=== PATIENT | male | born 1975 | race Asian ===

== ENCOUNTER 2024-03-10 08:19 | Inpatient (IN) | payer OTHER ==
[2024-03-10] MEDS ORDERED: LIDOCAINE VISCOUS 2% 10ML ORAL SOLN ONE (08:34)
[2024-03-10] MEDS ORDERED: MAGNES/ALUMIN/SIMET 30ML UCUP ONE (08:34)
[2024-03-10] MEDS ORDERED: DICYCLOMINE HCL 10 MG CAP ONE (08:34)
[2024-03-10 08:49] LABS: Absolute Basophils 0.1 K/uL (0-0.5); Absolute Eosinophils 0.4 K/uL (0-0.5); Absolute Lymphocytes (CBC) 3.8 K/uL (0.7-4.9); Absolute Neutrophil 6.6 K/uL (1.8-8.0); Basophils % 0.6 % (0-1.3); Eosinophils % 3.4 % (0-4.4); Hematocrit 38.9 % (39.6-49.0); Hemoglobin 13.1 g/dL (13.6-17.9); MCH 27.1 pg (27.0-35.0); MCHC 33.8 g/dL (32.0-36.0); MCV 80.1 fL (80-100); MPV 9.2 fL (7.6-11.3); Monocytes % 8.6 % (3.3-12.3); Neutrophils % 55.4 % (41.7-73.7); Nucleated Red Blood Cells % 0.1 % (0-0); Platelets 288 thou/uL (152-406); RBC Red Blood Cell Count 4.86 M/uL (4.33-5.43); Red Cell Distribution Width 14.6 % (12.1-15.2)
[2024-03-10 09:09] LABS: Anion Gap 9.7 mEq/L (5.0-15.0); Bilirubin Total 0.4 mg/dL (0.2-1.0); Potassium 3.7 mEq/L (3.5-5.1); Troponin High Sensitivity 10.2 pg/mL (<58.9)
[2024-03-10] MEDS ORDERED: ONDANSETRON 4 MG/2 ML VIAL ONE (09:23)
[2024-03-10] MEDS ORDERED: MORPHINE 4 MG/ML SYR ONE (09:24)
--- NOTE | 2024-03-10 10:01 | RAD REPORT ---
EXAM DESCRIPTION: CTAbdomen Pelvis W Contrast - 03/10/2024 9:40 am CLINICAL HISTORY: Abdominal pain. ABD PAIN COMPARISON: <Comparisons> TECHNIQUE: Biphasic CT imaging of the abdomen and pelvis was performed with 100 ml non-ionic IV cont rast. All CT scans are performed using dose optimization technique as appropriate and may include automated exposure control or mA/KV adjustment according to patient size. FINDINGS: The lung bases are clear. The liver demonstrates mild fatty infiltration. Cholelithiasis. Spleen, pancreas, adrenal glands and kidneys are within normal limits. Postsurgical changes are present inferior right kidney. Benign bila teral renal cysts. No bowel obstruction, free air, free fluid or abscess. Moderate stool is present throughout the colon . The appendix is normal. Small fat containing umbilical hernia. No evidence of significant lymphaden opathy. No suspicious bony findings. IMPRESSION: Cholelithiasis with mild gallbladder distention seen. Mild fatty liver.
[2024-03-10] MEDS ORDERED: KETOROLAC 30 MG/ML INJ ONE (10:15)
--- NOTE | 2024-03-10 10:44 | RAD REPORT ---
EXAM DESCRIPTION: US - Abdomen Exam Limited - 03/10/2024 10:29 am CLINICAL HISTORY: ruq pain COMPARISON: No comparisons FINDINGS: The gallbladder demonstrates numerous small gallstones. No pericholecystic fluid or gallbl adder wall thickening. The common bile duct is mildly prominent measuring 6-7 mm.. The liver demonstrates no findings of intrahepatic biliary dilatation. IMPRESSION: Cholelithiasis. Mildly prominent common bile duct. Follow-up MRCP may be of value.
[2024-03-10] MEDS ORDERED: NA CHLORIDE 0.9% 100 ML ONE (11:39)
[2024-03-10] MEDS ORDERED: PIPERACIL/TAZO 3.375 GM VIAL IV ONE (11:39)
--- NOTE | 2024-03-10 11:40 | ER ---
Nurse's Notes [facility] Name: Manjeet Huizar Age: 48 yrs Sex: Male : 1975 Arrival Date: 03/10/2024 Time: 08:19 Bed 5 Private MD: Diagnosis: Acute cholecystitis Presentation: 03/10 08:31 Chief complaint: Patient states: epigastric and RUQ pain 8/10 since he woke up this AM. kc6 denies n/v/d. states he felt fine yesterday. Coronavirus screen: At this time, the client does not indicate any symptoms associated with coronavirus-19. Ebola Screen: No symptoms or risks identified at this time. Initial Sepsis Screen: Does the patient meet any 2 criteria? No. Patient's initial sepsis screen is negative. Does the patient have a suspected source of infection? No. Patient's initial sepsis screen is negative. Risk Assessment: Do you want to hurt yourself or someone else? Patient reports no desire to harm self or others. Onset of symptoms was March 10, 2024. 08:31 Method Of Arrival: Ambulatory [facility] 08:31 Acuity: LEXA 3 kc6 Triage Assessment: 08:32 General: Appears in no apparent distress. comfortable, well groomed, well developed, kc6 Behavior is calm, cooperative, appropriate for age, drowsy, quiet. Pain: Complains of pain in epigastric area and right upper quadrant Pain does not radiate. Pain currently is 8 out of 10 on a pain scale. Pain began 2 hours ago. Is continuous. EENT: No signs and/or symptoms were reported regarding the EENT system. Neuro: Level of Consciousness is awake, alert, obeys commands, Oriented to person, place, time, situation, Appropriate for age. Cardiovascular: Denies chest pain, shortness of breath, Heart tones S1 S2 present Capillary refill < 3 seconds Rhythm is sinus bradycardia. Respiratory: Airway is patent Trachea midline Respiratory effort is even, unlabored, Respiratory pattern is regular, symmetrical. GI: Abdomen is round non-distended, Bowel sounds present X 4 quads. Abd is soft X 4 quads Abdomen is tender to palpation in epigastric area and right upper quadrant Reports upper abdominal pain, Patient currently denies diarrhea, nausea, vomiting. : No signs and/or symptoms were reported regarding the genitourinary system. Derm: No signs and/or symptoms reported regarding the dermatologic system. Skin is intact, is healthy with good turgor, Skin is pink, warm \T\ dry. Musculoskeletal: No signs and/or symptoms reported regarding the musculoskeletal system. Circulation, motion, and sensation intact. Capillary refill < 3 seconds, Range of motion: intact in all extremities. Historical: - Allergies: 08:32 No Known Allergies; kc6 - PMHx: 08:32 Hypercholesterolemia; kidney cancer; kc6 - PSHx: 08:32 kidney surgery; kc6 - Immunization history:: Adult Immunizations up to date. - Infectious Disease History:: Denies. - Family history:: not pertinent. - Social history:: Smoking status: Patient denies any tobacco usage or history of. Screenin:35 [facility] ED Fall Risk Assessment (Adult) History of falling in the last 3 months, kc6 including since admission No falls in past 3 months (0 pts) Confusion or Disorientation No (0 pts) Intoxicated or Sedated No (0 pts) Impaired Gait No (0 pts) Mobility Assist Device Used No (0 pt) Altered Elimination No (0 pt) Score/Fall Risk Level 0 - 2 = Low Risk. Abuse screen: Denies threats or abuse. Denies injuries from another. Nutritional screening: No deficits noted. Tuberculosis screening: No symptoms or risk factors identified. Assessment: 08:34 Reassessment: please see triage. kc6 09:48 Reassessment: Patient appears in no apparent distress at this time. No changes from kc6 previously documented assessment. Patient and/or family updated on plan of care and expected duration. Pain level reassessed. Patient is alert, oriented x 3, equal unlabored respirations, skin warm/dry/pink. 11:06 Reassessment: Patient appears in no apparent distress at this time. No changes from kc6 previously documented assessment. Patient and/or family updated on plan of care and expected duration. Pain level reassessed. Patient is alert, oriented x 3, equal unlabored respirations, skin warm/dry/pink. 11:48 Reassessment: David (son) [phone]. kc6 12:48 Reassessment: Patient appears in no apparent distress at this time. No changes from kc6 previously documented assessment. Patient and/or family updated on plan of care and expected duration. Pain level reassessed. Patient is alert, oriented x 3, equal unlabored respirations, skin warm/dry/pink. Vital Signs: 08:31 BP 129 / 82; Pulse 53; Resp 16 S; Temp 97.8(O); Pulse Ox 100% on R/A; Weight 65.32 kg kc6 (R); Height 5 ft. 1 in. (R); Pain 8/10; 09:48 BP 142 / 79; Pulse 56; Resp 16 S; Pulse Ox 100% on R/A; Pain 6/10; kc6 11:06 BP 106 / 69; Pulse 62; Resp 16 S; Pulse Ox 98% on R/A; kc6 12:00 BP 94 / 59; Pulse 64; Resp 15 S; Pulse Ox 100% on R/A; kc6 08:31 Body Mass Index 27.21 (65.32 kg, 154.94 cm) kc6 08:31 Pain Scale: Adult kc6 09:48 Pain Scale: Adult [facility] ED Course: 08:22 Patient arrived in ED. im 08:22 Soren Gutierrez MD is Attending Physician. rt 08:24 Lynette Hale, ЕЛЕНА is Primary Nurse. kc6 08:32 Triage completed. kc6 08:32 Arm band placed on. kc6 08:34 Patient has correct armband on for positive identification. Bed in low position. Call [facility] light in reach. Side rails up X 1. Adult w/ patient. Pulse ox on. NIBP on. Door closed. Noise minimized. Lights dimmed. Pillow given. 08:40 Initial lab(s) drawn, by me, sent to lab. Inserted saline lock: 20 gauge in right db antecubital area, using aseptic technique. Blood collected. Flushed with 10 mL NS. 09:41 CT Abd/Pelvis - IV Contrast Only In Process Unspecified. EDMS 10:31 US Abdomen Limited In Process Unspecified. EDMS 11:39 Jony Conde MD is Hospitalizing Provider. rt 13:06 No provider procedures requiring assistance completed. Patient admitted, IV remains in [facility] place. Administered Medications: 08:36 Drug: GI Cocktail without - (Maalox PO 30 ml, Lidocaine Mucous Membrane 2 % 15 db ml) PO once Route: PO; 09:10 Follow up: Response: No adverse reaction kc6 08:36 Drug: Dicyclomine PO 20 mg PO once Route: PO; db 09:10 Follow up: Response: No adverse reaction kc6 09:28 Drug: morphine IVP or IV 4 mg IVP once over 4 mins Route: IVP; Infused Over: 4 mins; kc6 Site: right antecubital; 09:48 Follow up: Response: No adverse reaction; Pain is decreased; RASS: Alert and Calm (0) kc6 09:28 Drug: Ondansetron IVP 4 mg IVP once; over 2 minutes Route: IVP; Site: right antecubital;kc6 09:48 Follow up: Response: No adverse reaction kc6 10:17 Drug: Ketorolac IVP 15 mg IVP once Route: IVP; Site: right antecubital; kc6 11:07 Follow up: Response: No adverse reaction kc6 11:48 Drug: Piperacillin-Tazobactam IVPB 3.375 grams IVPB once over 60 mins; (mix in NS 100 kc6 mL) Route: IVPB; Infused Over: 60 mins; Site: right antecubital; 13:07 Follow up: Response: No adverse reaction; IV Status: Completed infusion; IV Intake: kc6 100ml Medication: 13:06 VIS not applicable for this client. kc6 Intake: 13:07 IV: 100ml; Total: 100ml. kc6 Outcome: 11:40 Decision to Hospitalize by Provider. rt 13:06 Admitted to Med/surg accompanied by tech, via wheelchair, room 404, with chart, kc6 13:06 Condition: good 13:06 Instructed on the need for admit, 13:07 Patient left the ED. kc6 Signatures: Dispatcher [employer] EDMS Lynette Hale RN RN kc6 Marie Biswas RN RN db [place], Ryan, MD MD rt Renee Daniel Corrections: (The following items were deleted from the chart) 08:43 08:32 General: Appears in no apparent distress. comfortable, well groomed, well kc6 developed, Behavior is calm, cooperative, appropriate for age, drowsy, kc6
--- NOTE | 2024-03-10 11:40 | EDPHYS ---
Physician Documentation [facility] Name: Manjeet Huizar Age: 48 yrs Sex: Male : 1975 Arrival Date: 03/10/2024 Time: 08:19 Bed 5 Private MD: ED Physician Soren Gutierrez HPI: 03/10 08:32 This 48 yrs old Male presents to ER via Unassigned with complaints of Epigastric Pain. rt 08:32 Triage note states that the patient has chest pain, is mostly complaining of epigastric rt pain. States that this started this morning about 530. Denies nausea, vomiting. Denies other acute complaints, symptoms are moderate in severity, no other aggravating alleviating factors.. Historical: - Allergies: 08:32 No Known Allergies; kc6 - PMHx: 08:32 Hypercholesterolemia; kidney cancer; kc6 - PSHx: 08:32 kidney surgery; kc6 - Immunization history:: Adult Immunizations up to date. - Infectious Disease History:: Denies. - Family history:: not pertinent. - Social history:: Smoking status: Patient denies any tobacco usage or history of. ROS: 08:32 Constitutional: Negative for fever, chills, and weight loss, Cardiovascular: Negative rt for chest pain, palpitations, and edema, Respiratory: Negative for shortness of breath, cough, wheezing, and pleuritic chest pain, MS/Extremity: Negative for injury and deformity, Skin: Negative for injury, rash, and discoloration, Neuro: Negative for headache, weakness, numbness, tingling, and seizure, 08:32 Abdomen/GI: Positive for abdominal pain, Negative for nausea and vomiting, Exam: 08:32 Constitutional: This is a well developed, well nourished patient who is awake, alert, rt and in no acute distress. Head/Face: Normocephalic, atraumatic. Chest/axilla: Normal chest wall appearance and motion. Nontender with no deformity. No lesions are appreciated. Cardiovascular: Regular rate and rhythm with a normal S1 and S2. No gallops, murmurs, or rubs. Normal PMI, no JVD. No pulse deficits. Respiratory: Lungs have equal breath sounds bilaterally, clear to auscultation and percussion. No rales, rhonchi or wheezes noted. No increased work of breathing, no retractions or nasal flaring. Skin: Warm, dry with normal turgor. Normal color with no rashes, no lesions, and no evidence of cellulitis. MS/ Extremity: Pulses equal, no cyanosis. Neurovascular intact. Full, normal range of motion. Neuro: Awake and alert, GCS 15, oriented to person, place, time, and situation. Cranial nerves II-XII grossly intact. Motor strength 5/5 in all extremities. Sensory grossly intact. Cerebellar exam normal. Normal gait. 08:32 Abdomen/GI: Tenderness to the epigastrium, minimal right upper quadrant tenderness, no guarding, rebound, distention, 08:56 ECG was reviewed by the Attending Physician. rt Vital Signs: 08:31 BP 129 / 82; Pulse 53; Resp 16 S; Temp 97.8(O); Pulse Ox 100% on R/A; Weight 65.32 kg kc6 (R); Height 5 ft. 1 in. (R); Pain 8/10; 09:48 BP 142 / 79; Pulse 56; Resp 16 S; Pulse Ox 100% on R/A; Pain 6/10; kc6 11:06 BP 106 / 69; Pulse 62; Resp 16 S; Pulse Ox 98% on R/A; kc6 12:00 BP 94 / 59; Pulse 64; Resp 15 S; Pulse Ox 100% on R/A; kc6 08:31 Body Mass Index 27.21 (65.32 kg, 154.94 cm) kc6 08:31 Pain Scale: Adult kc6 09:48 Pain Scale: Adult kc6 MDM: 08:24 Patient medically screened. rt 11:40 Differential diagnosis: Cholecystitis, biliary colic, pancreatitis, gastroenteritis, rt gastritis. Data reviewed: vital signs, nurses notes, lab test result(s), EKG, radiologic studies. Consideration of Admission/Observation Patient was admitted/placed on observation. Management of patient was discussed with the following: Social Media Executive: Discussed with Dr. Gonzales of general surgery, will operate tomorrow. I considered the following discharge prescriptions or medication management in the emergency department Medications were administered in the Emergency Department. See MAR. Independent interpretation of the following test(s) in the Emergency Department CT Scan: My interpretation is Gallbladder stone seen on interpretation of CT scan images. Care significantly affected by the following chronic conditions: Hyperlipidemia. Counseling: I had a detailed discussion with the patient and/or guardian regarding the historical points, exam findings, and any diagnostic results supporting the discharge/admit diagnosis, lab results, radiology results, the need for further work-up and treatment in the hospital. Response to treatment: the patient's symptoms have markedly improved after treatment. 03/10 08:30 Order name: CBC with Diff; Complete Time: 09:11 rt 03/10 08:30 Order name: CMP; Complete Time: 09:11 rt 03/10 08:30 Order name: Lipase; Complete Time: 09:11 rt 08 08:30 Order name: Troponin High Sensitivity; Complete Time: 09:11 rt 08 08:30 Order name: CT Abd/Pelvis - IV Contrast Only; Complete Time: 10:07 rt 03/10 10:13 Order name: US Abdomen Limited; Complete Time: 10:46 rt 03/10 08:30 Order name: IV Saline Lock; Complete Time: 08:43 rt 08 08:30 Order name: Labs collected and sent; Complete Time: 08:43 rt 03/10 08:30 Order name: EKG - Nurse/Tech; Complete Time: 08:43 rt EC:56 Rate is 54 beats/min. Rhythm is regular, Sinus bradycardia with No ectopy. QRS [place] is rt Normal. MO interval is normal. QRS interval is normal. QT interval is normal. No Q waves. T waves are Normal. No ST changes noted. Interpreted by me. Administered Medications: 08:36 Drug: GI Cocktail without - (Maalox PO 30 ml, Lidocaine Mucous Membrane 2 % 15 db ml) PO once Route: PO; 09:10 Follow up: Response: No adverse reaction kc6 08:36 Drug: Dicyclomine PO 20 mg PO once Route: PO; db 09:10 Follow up: Response: No adverse reaction kc6 09:28 Drug: morphine IVP or IV 4 mg IVP once over 4 mins Route: IVP; Infused Over: 4 mins; kc6 Site: right antecubital; 09:48 Follow up: Response: No adverse reaction; Pain is decreased; RASS: Alert and Calm (0) kc6 09:28 Drug: Ondansetron IVP 4 mg IVP once; over 2 minutes Route: IVP; Site: right antecubital;kc6 09:48 Follow up: Response: No adverse reaction kc6 10:17 Drug: Ketorolac IVP 15 mg IVP once Route: IVP; Site: right antecubital; kc6 11:07 Follow up: Response: No adverse reaction kc6 11:48 Drug: Piperacillin-Tazobactam IVPB 3.375 grams IVPB once over 60 mins; (mix in NS 100 kc6 mL) Route: IVPB; Infused Over: 60 mins; Site: right antecubital; 13:07 Follow up: Response: No adverse reaction; IV Status: Completed infusion; IV Intake: kc6 100ml Disposition Summary: 03/10/24 11:40 Hospitalization Ordered Notes: Hospitalization Status: Observation rt Provider: Jony Conde rt Location: Telemetry/MedSurg (observation) rt Condition: Stable rt Problem: new rt Symptoms: have improved rt Bed/Room Type: Standard rt Room Assignment: 404(03/10/24 12:11) eb Diagnosis - Acute cholecystitis rt Forms: - Medication Reconciliation Form rt - SBAR form rt - Leadership Thank You Letter rt Signatures: Dispatcher [employer] EDMS Nikki Griffiths Kaitlyn RN RN kc6 Marie Biswas RN RN db Soren Gutierrez MD MD rt Corrections: (The following items were deleted from the chart) 08:30 08:30 CBC+H.LAB.BRZ ordered. EDMS EDMS 08:30 08:30 COMPREHENSIVE METABOLIC PANEL+C.LAB.BRZ ordered. EDMS EDMS 08:30 08:30 LIPASE+C.LAB.BRZ ordered. EDMS EDMS 08:30 08:30 Troponin High Sensitivity+C.LAB.BRZ ordered. EDMS EDMS 08:30 08:30 Abdomen Pelvis W Con+CT.RAD.BRZ ordered. EDMS EDMS 12:11 11:40 rt eb
--- NOTE | 2024-03-10 12:12 | P.HP ---
Certification for Inpatient Patient admitted to: Observation With expected LOS: <2 Midnights Patient will require the following post-hospital care: None Practitioner: I am a practitioner with admitting privileges, knowledge of patient current condition, hospital course, and medical plan of care. Services: Services provided to patient in accordance with Admission requirements found in Title 42 Section 412.3 of the Code of Federal Regulations Patient History Date of Service: 03/10/24 Reason for admission: Abdominal tenderness, cholelithiasis History of Present Illness: 48-year-old male with history of hyperlipidemia, renal cancer with partial right nephrectomy about 1 year ago presents emergency department chief complaint of epigastric abdominal pain. He reports his symptoms began this morning, he has not had similar symptoms in the past, he did have some nausea last week. Patient was evaluated in the emergency department his labs are significant for a glucose of 144 white blood cell count 12.0 hemoglobin 13.[address] abdomen pelvis with IV contrast was performed that revealed cholelithiasis with mild gallbladder distention, mild fatty liver. Follow-up ultrasound of the abdomen was performed which showed cholelithiasis with mildly prominent common bile duct. ED prior to worst provider discussed case with general surgery who wishes for patient to be admitted to hospital service for further management. - Past Medical/Surgical History -: Hyperlipidemia -: Renal cancer -: Partial right nephrectomy Psychosocial/ Personal History: Patient is currently unemployed, lives home with family - Family History Brother -: Heart disease Mother -: Blood disorders Father -: Lung disease, Cancer - Social History Smoking Status: Never smoker Alcohol use: No CD- Drugs: No Place of Residence: Home Review of Systems 10-point ROS is otherwise unremarkable Gastrointestinal: Nausea, Abdominal Pain Physical Examination - Physical Exam General: Alert, In no apparent distress, Oriented x3 HEENT: Atraumatic, PERRLA, Mucous membr. moist/pink, EOMI Neck: Supple, 2+ carotid pulse no bruit, No LAD Respiratory: Clear to auscultation bilaterally, Normal air movement Cardiovascular: Regular rate/rhythm, Normal S1 S2 Gastrointestinal: Normal bowel sounds, Tenderness (Mild epigastric tenderness) Musculoskeletal: No tenderness Integumentary: No rashes Neurological: Normal gait, Normal speech, Normal strength at 5/5 x4 extr, Normal tone, Normal affect - Studies Laboratory Data (last 24 hrs) 03/10/24 03/10/24 08:40 08:40 WBC 12.00 H Hgb 13.1 L Hct 38.9 L Plt Count 288 Sodium 138 Potassium 3.7 BUN 18 Creatinine 0.89 Glucose 144 H Total Bilirubin 0.4 AST 17 ALT 29 Alkaline Phosphatase 88 Lipase 46 Assessment and Plan - Plan Assessment: Abdominal tenderness, cholelithiasis Hyperlipidemia History of renal cancer status post partial right nephrectomy 2022 Plan: Abdominal tenderness, cholelithiasis Clear liquid diet, n.p.o. after midnight General surgery consulted, case discussed with ER physician Monitor CBC, CMP Possible surgical intervention tomorrow morning Empiric antibiotics with Zosyn Hyperlipidemia Continue home medications when appropriate History of renal cancer status post partial right nephrectomy 2022 Reportedly cleared by his oncologist, no need for chemo or radiation DVT PPX: SCD Code status: Full Discharge Plan: Home Plan to discharge in: 24 Hours - Advance Directives Does patient have a Living Will: No Does patient have a Durable POA for Healthcare: No - Code Status/Comfort Care Code Status Assessed: Yes (Full code) Critical Care: No Time Spent Managing Pts Care (In Minutes): 60
--- NOTE | 2024-03-10 17:18 | CON ---
Date of Consultation: 03/10/2024 Diagnoses: Acute cholecystitis, symptomatic cholelithiasis. History Of Present Illness: Mr. Huizar is a 48-year-old patient coming this morning complaining of epigastric right upper quadrant pain, radiating to the back, associated with nausea and vomiting. He states it started about 5 o'clock this morning. The only thing he remembers last night he ate very spicy. Since the pain was not getting better, he was admitted to the hospital and a surgical consult was obtained for a cholecystectomy. Past Medical History: Includes kidney tumor, he says the tumor was removed, the kidney is still ther e on the right side, it was done laparoscopically about a year and a half ago. He has medical histor y of hyperglycemia. Family History: Brother with heart disease and father with lung disease. Social History: He does not smoke. He does not drink alcohol. Review of Systems: As above, nausea, abdominal pain. No fever. No dysuria, hematuria, hematochezia, or melena. Physical Examination: Vital Signs: Reviewed. General: The patient is awake, alert, in no distress. HEENT: Pupils anicteric. Neck: Supple. Chest: Clear. Heart: S1, S2. Abdomen: Soft and depressible. There is mild epigastric, right upper quadrant tenderness. Extremities: Good capillary refill. Laboratory Data: Blood work shows WBC count of 12, hemoglobin of 13.1, and platelets of 288. Potass ium 3.7, BUN is 18, glucose 144. Abdominal ultrasound shows cholelithiasis, mild prominent common bi le duct. LFTs are normal. Assessment: 48-year-old patient comes to us with acute cholecystitis, symptomatic cholelithiasis. L FTs are normal. Pain is still there. Lipase is normal. The benefits, alternatives, and risks of la paroscopic possible open cholecystectomy fully explained, which include, but not limited to infection , bleeding, damage to adjacent structures, anesthesia complication, choledocholithiasis, bile leak, p ancreatitis, ME, even . He also understands this may not relieve symptoms. He might need more than one surgical intervention. JASON/MODL Voice ID: [id number] Report ID: [id number]
[2024-03-10] MEDS: NA CHLORIDE 0.9% 1,000 ML IV SCH (18:42)
[2024-03-10] MEDS: PIPER TAZO 3.375 GM in NA CHLORIDE 0.9% 100 ML IV SCH (20:46)
[2024-03-11 05:21] LABS: Hematocrit 35.7 % (39.6-49.0); Hemoglobin 12.4 g/dL (13.6-17.9); Lymphocytes % 30.7 % (15.3-44.8); MCH 27.5 pg (27.0-35.0); MCHC 34.6 g/dL (32.0-36.0); MCV 79.5 fL (80-100); MPV 9.9 fL (7.6-11.3); Monocytes % 8.9 % (3.3-12.3); Neutrophils % 55.4 % (41.7-73.7); Platelets 261 thou/uL (152-406); RBC Red Blood Cell Count 4.49 M/uL (4.33-5.43); Red Cell Distribution Width 14.4 % (12.1-15.2)
[2024-03-11 05:22] LABS: Absolute Basophils 0.1 K/uL (0-0.5); Absolute Eosinophils 0.4 K/uL (0-0.5); Absolute Lymphocytes (CBC) 3.1 K/uL (0.7-4.9); Absolute Monocytes 0.9 K/uL (0.1-1.3); Absolute Neutrophil 5.5 K/uL (1.8-8.0); Nucleated Red Blood Cells % 0.2 % (0-0)
[2024-03-11 05:46] LABS: Albumin 3.5 g/dL (3.4-5.0); Anion Gap 8.4 mEq/L (5.0-15.0); Bilirubin Total 0.7 mg/dL (0.2-1.0); Globulin 3.5 g/dL (2.3-3.5); Potassium 3.4 mEq/L (3.5-5.1)
--- NOTE | 2024-03-11 11:26 | P.PN ---
Date of Service: 03/11/24 Subjective: Improving tolerating full liquids no acute events overnight C/O mild headache today ROS: 10 point ROS as noted above, otherwise negative Physical exam GEN: Alert, oriented, NAD HEENT: Normal conjunctiva, sclera anicteric CV: Regular rate and rhythm, no edema Pulm: Nonlabored respirations on room air ABD: Soft, nontender, nondistended MSK: No joint tenderness Integumentary: No rashes Neuro: Normal speech, normal affect Vitals reviewed Assessment: Abdominal tenderness, cholelithiasis Hyperlipidemia History of renal cancer status post partial right nephrectomy 2022 Plan: Abdominal tenderness, cholelithiasis Full liquid, npo midnight MRCP in AM General surgery consulted, case discussed with ER physician Monitor CBC, CMP Possible surgical intervention tomorrow after MRCP Empiric antibiotics with Zosyn Hyperlipidemia Continue home medications when appropriate History of renal cancer status post partial right nephrectomy 2022 Reportedly cleared by his oncologist, no need for chemo or radiation DVT PPX: SCD Code status: Full Discharge Plan: Home Plan to discharge in: 24 Hours Time Spent Managing Pts Care (In Minutes): 35
[2024-03-11] MEDS: ACETAMINOPHEN 500 MG TAB PO ONE (12:12)
[2024-03-11] MEDS ORDERED: BENZONATATE 100 MG CAP PO PRN (14:36)
--- NOTE | 2024-03-11 15:01 | PN ---
Date of Progress Note: 03/11/2024 Diagnoses: Acute cholecystitis, symptomatic cholelithiasis. Subjective: The patient is doing well, better. Objective: Vital Signs: Stable. Chest: Clear. Abdomen: Soft and depressible. Extremities: Good capillary refill. Laboratory Data: MRCP is still pending. Plan: We explained to him once again the options of laparoscopic possible open cholecystectomy with benefits, alternatives, and risks include, but not limited to infection, bleeding, damage to adjacent structures, anesthesia complication, recurrence, [place], and even . He also understands this may n ot relieve any symptoms. He might need more than one surgical intervention. JASON/BESSY Voice ID: [id number] Report ID: [id number]
[2024-03-11] MEDS: MORPHINE 2 MG/ML SYR IV PRN (21:15)
[2024-03-12] MEDS: HYDROMORPHONE HCL 1 MG/ML INJ IV ONE (03:26)
[2024-03-12 06:29] LABS: Absolute Basophils 0.1 K/uL (0-0.5); Absolute Eosinophils 0.5 K/uL (0-0.5); Absolute Lymphocytes (CBC) 3.3 K/uL (0.7-4.9); Absolute Neutrophil 6.8 K/uL (1.8-8.0); Eosinophils % 4.2 % (0-4.4); Hematocrit 37.6 % (39.6-49.0); Hemoglobin 12.8 g/dL (13.6-17.9); Lymphocytes % 28.3 % (15.3-44.8); MCH 27.2 pg (27.0-35.0); MCV 80.1 fL (80-100); MPV 9.7 fL (7.6-11.3); Monocytes % 8.7 % (3.3-12.3); Neutrophils % 57.8 % (41.7-73.7); Platelets 275 thou/uL (152-406); RBC Red Blood Cell Count 4.69 M/uL (4.33-5.43); Red Cell Distribution Width 14.5 % (12.1-15.2)
[2024-03-12 06:41] LABS: Albumin 3.6 g/dL (3.4-5.0); Albumin/Globulin Ratio 0.9 (1.1-1.8); Anion Gap 6.2 mEq/L (5.0-15.0); Bilirubin Total 0.7 mg/dL (0.2-1.0); Globulin 3.8 g/dL (2.3-3.5); Potassium 3.2 mEq/L (3.5-5.1); Protein, Total 7.4 g/dL (6.4-8.2)
--- NOTE | 2024-03-12 08:52 | RAD REPORT ---
EXAM DESCRIPTION: MRI - Cholangiogram - 03/12/2024 8:22 am CLINICAL HISTORY: Patti, dilated cbd COMPARISON: Abdomen Exam Limited dated 03/10/2024; Abdomen Pelvis W Contrast dated 03/10/2024 TECHNIQUE: Multiplanar multisequence MRI of the abdomen, obtained without IV contrast, utilizing M CHIPPER sequences. FINDINGS: Gallbladder is suboptimally distended, demonstrating some wall thickening or edema. Hetero geneous T2 hypointense material dependently, may represent sludge. No other discrete filling defects within the gallbladder. No intrahepatic biliary ductal dilation. Common bile duct is at the upper limit of normal in caliber proximally, measuring 5 millimeter. [place] h transition with distal normal caliber, 3 mm. No filling defects to suggest choledocholithiasis. Smo oth tapering at the ampulla. Main pancreatic duct is not dilated. The visualized aspects of the liver, spleen, adrenal glands, pancreas, and kidneys are unremarkable a part from small cortical left renal cysts largest measuring 8 mm. Visualized aspects of the bowel are unremarkable. No suspicious osseous lesions. Trace bilateral pleural effusions IMPRESSION: Suboptimally distended gallbladder, however demonstrating some wall thickening or edema. Please correlate clinically for acute cholecystitis. Suggestion of mild gallbladder sludge. Normal caliber of the intra and extrahepatic bile ducts. No evidence of choledocholithiasis.
[2024-03-12] MEDS ORDERED: propofoL 200 MG/20 ML VIAL IV ONE (12:11)
[2024-03-12] MEDS ORDERED: FENTANYL CITR 100 MCG/2 ML ONE ×2 (12:11→12:53)
[2024-03-12] MEDS ORDERED: MIDAZOLAM HCL 2 MG/2 ML INJ ONE (12:11)
[2024-03-12] MEDS ORDERED: ONDANSETRON 4 MG/2 ML VIAL ONE (12:11)
[2024-03-12] MEDS ORDERED: ROCURONIUM 50 MG/5 ML VIAL IV ONE (12:12)
[2024-03-12] MEDS ORDERED: LIDOCAINE 2% MPF 5 ML VIAL ONE (12:12)
[2024-03-12] MEDS: SUGAMMADEX SODIUM 200 MG/2 ML VIAL IV ONE (12:18)
[2024-03-12] MEDS ORDERED: dexAMETHasone 10 MG/ML VIAL ONE (12:53)
--- NOTE | 2024-03-12 13:12 | P.PN ---
Date of Service: 03/12/24 Subjective: Doing okay today Complains of left lower back pain N.p.o. no suspicion MRCP/surgery ROS: 10 point ROS as noted above, otherwise negative Physical exam GEN: Alert, oriented, NAD HEENT: Normal conjunctiva, sclera anicteric CV: Regular rate and rhythm, no edema Pulm: Nonlabored respirations on room air ABD: Soft, nontender, nondistended MSK: No joint tenderness Integumentary: No rashes Neuro: Normal speech, normal affect Vitals reviewed Assessment: Abdominal tenderness, suspected cholecystitis Hyperlipidemia History of renal cancer status post partial right nephrectomy 2022 Plan: Abdominal tenderness, suspected cholecystitis MRCP negative for obstruction signs of cholecystitis General surgery to take patient OR today for cholecystectomy Monitor CBC, CMP Empiric antibiotics with Zosyn Blood pressure on the soft side around 100 systolic/90 systolic, patient reports this is baseline for him Hyperlipidemia Continue home medications when appropriate History of renal cancer status post partial right nephrectomy 2022 Reportedly cleared by his oncologist, no need for chemo or radiation DVT PPX: SCD Code status: Full Discharge Plan: Home Plan to discharge in: 24 Hours Time Spent Managing Pts Care (In Minutes): 35
--- NOTE | 2024-03-12 13:19 | P.BOP ---
Preoperative diagnosis: acute cholecystitis, symptomatic cholelithiasis Postoperative diagnosis: same, acute suppurative cholecystitis Primary procedure: Laparoscopic cholecystectomy Estimated blood loss: <10cc Specimen: gb Findings: as above Anesthesia: General Complications: None Drain(s): SHOSHANA drain Transferred to: Recovery Room Condition: Good
[2024-03-12] MEDS: HYDROMORPHONE HCL 1 MG/ML INJ ONE (14:10)
[2024-03-12] MEDS: HYDROCODONE/APAP 5/325 MG TAB PO PRN (15:03)
[2024-03-12] MEDS: NA CHLORIDE 0.9% 1,000 ML ONE (15:04)
--- NOTE | 2024-03-12 17:04 | EKG ---
Test Date: 2024-03-10 Test Time: 08:40:35 Resume Writer: HASEEB MEASUREMENT RESULTS: Intervals: Rate: 54 ID: [id number] QRSD: 96 QT: 374 QTc: 354 [place]: P: 52 ID: [id number] QRS: 69 T: 60 INTERPRETIVE STATEMENTS: Sinus bradycardia with sinus arrhythmia Early repolarization Otherwise normal ECG No previous ECG available for comparison Electronically Signed On 03-12-24 16:58:48 CDT by Dave Low
[2024-03-12] MEDS: ONDANSETRON 4 MG/2 ML VIAL IV PRN (20:12)
[2024-03-12 21:47] VITALS: O2SAT 95
[2024-03-12] MEDS: ZOLPIDEM TARTRATE 5 MG TABLET PO PRN (21:59)
[2024-03-13 07:01] LABS: Absolute Lymphocytes (CBC) 1.9 K/uL (0.7-4.9); Absolute Monocytes 0.9 K/uL (0.1-1.3); Absolute Neutrophil 11.8 K/uL (1.8-8.0); Basophils % 0.3 % (0-1.3); Hematocrit 36.5 % (39.6-49.0); Lymphocytes % 12.9 % (15.3-44.8); MCH 26.8 pg (27.0-35.0); MCV 81.3 fL (80-100); MPV 10.1 fL (7.6-11.3); Monocytes % 6.1 % (3.3-12.3); Neutrophils % 80.7 % (41.7-73.7); Platelets 263 thou/uL (152-406); RBC Red Blood Cell Count 4.48 M/uL (4.33-5.43); Red Cell Distribution Width 14.4 % (12.1-15.2)
[2024-03-13 07:40] LABS: Anion Gap 5.8 mEq/L (5.0-15.0); Potassium 3.8 mEq/L (3.5-5.1)
--- NOTE | 2024-03-13 12:55 | P.DS ---
Admission Date: 03/12/24 Discharge Date: 03/13/24 Disposition: ROUTINE DISCHARGE Discharge Condition: FAIR Reason for Admission: Abdominal tenderness, cholelithiasis Brief History of Present Illness: Diagnosis Acute suppurative cholecystitis, symptomatic cholelithiasis status post cholecystectomy 03/12 with SH[address] drain in place Abdominal tenderness Hyperlipidemia History of renal cancer status post partial right nephrectomy 2022 HPI 03/10/2024 Manjeet Huizar is a 48-year-old male with history of hyperlipidemia, renal cancer with partial right nephrectomy about 1 year ago presents emergency department chief complaint of epigastric abdominal pain. He reports his symptoms began this morning, he has not had similar symptoms in the past, he did have some nausea last week. Patient was evaluated in the emergency department his labs are significant for a glucose of 144 white blood cell count 12.0 hemoglobin 13.[address] abdomen pelvis with IV contrast was performed that revealed cholelithiasis with mild gallbladder distention, mild fatty liver. Follow-up ultrasound of the abdomen was performed which showed cholelithiasis with mildly prominent common bile duct. ED prior to worst provider discussed case with general surgery who wishes for patient to be admitted to hospital service for further management. Hospital Course: Manjeet Huizar is a pleasant 48 year old male with a past medical history significant for hyperlipidemia, renal cancer with partial right nephrectomy about 1 year ago who was admitted to the [facility] on 03/10/24 for Epigastric abdominal pain. Manjeet presented to the ED with epigastric abdominal pain. CT abd/pelvis revealed cholelithiasis with mild gallbladder distention and mild fatty liver. Christian Gonzales was consulted and surgery was performed on 03/12/24. He is tolerating PO diet, passing flatulance and had a bowel movement. He will follow up with Dr. Gonzales for further management of the drain. Antibiotics will be continued with Augmentin. He is complaining of a cough and tessalon perles were prescribed. On 03/13/24, Manjeet was seen on morning rounds and deemed medically stable for discharge. Manjeet was discharged with instructions to schedule follow-up appointments with PCP and Dr. Gonzales. He was provided prescriptions for augmentin, tessalon perle. Physical exam GEN: Awake, Alert, and oriented x3, NAD HEENT: Normal conjunctiva, sclera anicteric CV: Regular rate and rhythm, S1 S2 present, no murmur noted Pulm: Nonlabored respirations on room air ABD: Soft and tender on palpation, nondistended, incisions approximated, drain with minimal output MSK: No joint tenderness, 2+ peripheral pulses Integumentary: No rashes Neuro: Normal speech, normal affect Vital Signs/Physical Exam: Temp Pulse Resp BP Pulse Ox 97.6 F 62 16 98/55 L 96 03/13/24 07:00 03/13/24 07:00 03/13/24 10:28 03/13/24 07:00 03/13/24 10:28 Laboratory Data at Discharge: WBC 14.60 thou/uL (4.3-10.9) H 03/13/24 05:51 Hgb 12.0 g/dL (13.6-17.9) L 03/13/24 05:51 Hct 36.5 % (39.6-49.0) L 03/13/24 05:51 Plt Count 263 thou/uL (152-406) 03/13/24 05:51 Sodium 140 mEq/L (136-145) 03/13/24 05:51 Potassium 3.8 mEq/L (3.5-5.1) D 03/13/24 05:51 BUN 9 mg/dL (7-18) 03/13/24 05:51 Creatinine 0.92 mg/dL (0.70-1.30) 03/13/24 05:51 Glucose 112 mg/dL (74-106) H 03/13/24 05:51 Total Bilirubin 0.7 mg/dL (0.2-1.0) 03/12/24 06:05 AST 20 U/L (15-37) 03/12/24 06:05 ALT 31 U/L (16-61) 03/12/24 06:05 Alkaline Phosphatase 68 U/L (45-117) 03/12/24 06:05 Lipase 46 U/L (13-75) 03/10/24 08:40 Home Medications: Amox/Clavulanate [Augmentin 875-125 Tab] 875 mg PO BID 7 Days #14 tab 03/13/24 Benzonatate [Tessalon Perle*] 100 mg PO TID PRN 5 Days #15 cap 03/13/24 New Medications: Amox/Clavulanate [Augmentin 875-125 Tab] 875 mg PO BID 7 Days #14 tab Benzonatate [Tessalon Perle*] 100 mg PO TID PRN 5 Days #15 cap PRN Reason: Cough Physician Discharge Instructions: Manjeet Huizar presented was treated for an inflammed gallbladder. Surgery was on 03/12/24. Dr. Gonzales has cleared you for discharge. Please continue antibioti cs to complete the course. Tessalon Perles have been prescribed for your cough. 1. Please call and schedule a follow-up appointment with your PCP in 3-5 days - Please follow-up with your PCP for medication refills/adjustments 2. Please call and schedule a follow-up appointment with Dr. Gonzales on Tuesday03/16/24 3. Continue bland diet 4. No activity restrictions 5. Return to the ED if symptoms worsen New medications Augmentin 875 mg by mouth twice a day for 7 days Tessalon Perles as needed 3 times a day x 5 days Diet: [place] Activity: Ad oseas Followup: [facility] [Primary Care Provider] - Duglas Gonzales MD [ACTIVE - CAN ADMIT] - 03/16/24
[2024-03-13 13:25] VITALS: BP 98/54; TEMP 98.4
[2024-03-13 14:01] VITALS: BMI 25.9
--- NOTE | 2024-03-13 20:40 | OP ---
Date of Procedure: 03/13/2024 Surgeon: Dugals Gonzales MD Preoperative Diagnoses: Acute cholecystitis, symptomatic cholelithiasis. Postoperative Diagnoses: Acute cholecystitis, symptomatic cholelithiasis, acute suppurative cholecys titis. Procedure: Laparoscopic cholecystectomy. Estimated Blood Loss: Less than 10 mL. Specimen: Gallbladder. Anesthesia: General plus local. Drains: SHOSHANA #10. Indication: This is a case of a 48-year-old patient comes to us with above diagnoses. Fully explain ed the benefit and alternatives and risks of laparoscopic possible open cholecystectomy which include , but not limited to infection, bleeding, damage to adjacent structures, anesthesia complication, cho ledocholithiasis, bile leak, pancreatitis, [place], and . He also understands this may not relieve s ymptoms, he might need more than one surgical intervention. He understood, signed a consent. Procedure In Detail: Patient was brought to the operating room, placed in supine position. Anesthes ia was done without complication. Abdominal area was prepped and draped in a sterile fashion. Ban ine 0.5% was injected for local anesthetic followed by sharp incision of the skin in the periumbilica l region. Incision was carried down to fascia, which was opened under direct vision. Peritoneum was encountered opened under direct vision. Vicryl #1 placed inside the fascia. Tamia trocar was care fully introduced. Pneumoperitoneum was obtained. I placed 3 more trocars, 5 mm each one of them 1 i n epigastric area, 2 in the right upper quadrant using same technique, which consisted of local anest hetic, sharp incision of the skin and introduction of the trocars under direct vision. There is some omental adhesions to the gallbladder that have to be addressed and removed. Those adhesions also ar e from omentum into the liver. So using the help of LigaSure, we were able to release those with no bleeding. Once we stop those adhesions, we proceeded with the gallbladder surgery. We grasped fundu s of the gallbladder and another one infundibulum. Retracting the gallbladder in the inferolateral f ashion exposing the triangle of [place], obtaining critical view. Cystic duct and cystic artery were c learly isolated freed circumferentially and a connection between those and the gallbladder were clear ly identified. I proceeded to ligate those by using at least 3 clips proximal, 1 clip distal, ligati on in middle. Same was done with the cystic artery. No bile leak. No bleeding. The gallbladder wa s examined. We noticed the patient to have an area of the cystic duct, some purulent discharge. We examined the gallbladder outside. We noticed the patient to be a suppurative cholecystitis with pus inside the gallbladder. I proceeded to leave a SHOSHANA drain in that region. A SHOSHANA drain was exiting to o ne of the trocar sites. We inspected the area. No bile leak. No bleeding. Gallbladder fossa was i ntact with no bleeding. At that moment, I proceeded to remove the trocars under direct vision. Defl ated the pneumoperitoneum. Closed the fascia with #1 Vicryl, irrigated subcutaneous tissue, closed w ith 3-0 chromic and skin with jessie. Sponge count, instrument counts correct. SHOSHANA was connected to bulb suction and a nylon was placed around the SHOSHANA drain. The patient sent to recovery in stable con dition. JASON/BESSY Voice ID: [id number] Report ID: [id number]
== END 2024-03-13 15:00 | disposition home or self-care (01) | DRG 419 ==
LOC: ER 08:19 → ERHOLD 12:01 → 4TH 12:15 → OBSVTOIN 03-12 13:37
PROVIDERS: ADMIT Hospitalist; ATTEND Internal Medicine
PROC: 0FT44ZZ Resection of Gallbladder, Percutaneous Endoscopic Approach (ICD-10-PCS; principal; 2024-03-12 13:15)
DX: K80.00 Calculus of gallbladder with acute cholecystitis without obstruction (principal); E78.00 Pure hypercholesterolemia, unspecified; K76.0 Fatty (change of) liver, not elsewhere classified; Z56.0 Unemployment, unspecified; Z90.5 Acquired absence of kidney; Z85.528 Personal history of other malignant neoplasm of kidney
CPT/HCPCS: 36415; 74177; 74181; 76705; 80048; 80053; 83690; 84484; 85025; 87070; 87075; 87205; 88304; 93005; 94010; 96365; 96375; 99285; G0378; J1100; J1170; J2001; J2250; J2270; J2405; J2543; J2704; J3010; J7030; Q9967